=== PATIENT | male | born 1985 | race Caucasian/White ===

== ENCOUNTER 2024-03-14 16:41 | Emergency (ER) | payer OTHER ==
[~2024-03-14] VITALS: Ht 172.7 cm; Wt 72.6 kg
[2024-03-14] MEDS ORDERED: RABIES VACCINE (PCEC)/PF 2.5 UNIT ML IM ONE (17:34)
[2024-03-14] MEDS: RABIES VACCINE (PCEC)/PF 2.5 UNIT ML IM ONE (18:05)
[2024-03-14 18:11] VITALS: BP 130/77; TEMP 98; O2SAT 99
== END 2024-03-14 17:50 | disposition home or self-care (01) ==
LOC: ER 16:46
DX: Z23 Encounter for immunization (principal)
CPT/HCPCS: A4606; A4663

== ENCOUNTER 2024-03-22 08:25 | Emergency (ER) | payer OTHER ==
[~2024-03-22] VITALS: Ht 172.7 cm; Wt 72.6 kg
[2024-03-22] MEDS ORDERED: RABIES VACCINE (PCEC)/PF 2.5 UNIT ML IM ONE (09:33)
[2024-03-22] MEDS ORDERED: RABIES IMMUNE GLOBULIN/PF 300 UNIT/ML 2 ML VIAL IM ONE (09:35)
[2024-03-22 09:48] VITALS: BP 128/84; TEMP 98; O2SAT 99
[2024-03-22] MEDS: RABIES VACCINE (PCEC)/PF 2.5 UNIT ML IM ONE (09:48)
== END 2024-03-22 09:48 | disposition home or self-care (01) ==
LOC: ER 08:25
DX: Z23 Encounter for immunization (principal)
CPT/HCPCS: 90376; A4606; A4663